=== PATIENT | male | born 1965 | race Caucasian/White ===

== ENCOUNTER 2018-09-04 13:20 | Inpatient (IN) | payer OTHER ==
[~2018-09-04] VITALS: Ht 172.7 cm; Wt 128.9 kg
[2018-09-04] MEDS ORDERED: LASIX20 MG PO (13:35)
[2018-09-04] MEDS ORDERED: TOPROL XL50 MG PO (13:36)
[2018-09-04] MEDS ORDERED: LISINOPRIL10 MG PO (13:37)
--- NOTE | 2018-09-04 17:38 | NUR ---
MED REC COMPLETE
--- NOTE | 2018-09-04 18:19 | NUR ---
PT ATE DINNER WELL, ANTHONY WELL. PT HAVING SOB AND IS STANDING AT THIS TIME. HAS PAIN IN LEGS BURING AND TIGHTNESS NOTED DURING ASSEMENT
--- NOTE | 2018-09-04 18:47 | NUR ---
PT HAVING INCREASED SOB, RT HERE TO PROVIDE NEB TX. PT PLACED ON O2 VIA NC AT 2L'S. PT ALSO GIVEN COUGH MEDICINE AT THIS TIME.
--- NOTE | 2018-09-04 19:20 | NUR ---
Patient asked for assistance with putting his nasal cannula in, he also wanted the RN Sania to look at his IV sight because he believed it to be leaking.
--- NOTE | 2018-09-04 19:30 | NUR ---
REPORT RC'D FROM DAY SHIFT NURSE CRIS. REPORTS INCREASED WOB, RR INTO 30'S, PRODUCTIVE COUGH, AND HYPERTENSION. PT UP AT EDGE OF BED WATCHING TV.
--- NOTE | 2018-09-04 20:30 | NUR ---
AAOX4 AND RESPONDING APPROPRIATELY. SINUS RHYTHM NOTED ON MONITOR, HEART SOUNDS DISTANT, PERIPHERAL PULSES PALPABLE. EDEMA TO BLE NONPITTING, TIGHT, AND SKIN PEELING. MODERATE GENERALIZED EDEMA TO ABD, DISTENDED AND TIGHT. GENERALIZED EDEMA TO BUE. INCREASED WOB, RR 25, PRODUCTIVE COUGH WITH THIN CLEAR SPUTUM, BUL CLEAR, BLL COARSE AND TIGHT, 2L NC. BOWEL TONES HYPERACTIVE X4, DENIEA NAUSEA, 1800 ML FLUID RESTRICTION. VOIDING QS. CMS INTACT. REDDENED AREAS TO BLE AND ABD, PT STATES NORMAL. CURRENT PAIN 7/10, HEADACHE, 650 MG TYLENOL GIVEN. IV SITES FLUSHED, PATENT, WNL. EDUCATION PROVIDED ON CURRENT ILLNESS, ACTIVITY, FLUID RESTRICTION, DIET, SAFETY, MEDICATION, AND FALL PREVENTION. ALL QUESTIONS ANSWERED, VERBALIZED UNDERSTANDING, AGREEABLE TO PLAN. DENIES OTHER NEEDS. CALL LIGHT WITHIN REACH.
--- NOTE | 2018-09-04 20:36 | NUR ---
ELYSIA Valenzuela asked me to get a blood sugar check on the patient and it was within normal range.
--- NOTE | 2018-09-04 23:22 | NUR ---
PT REQUESTING TO HAVE MCKEON CATH PLACED. PT STATES HE IS "GETTING REALLY TIRED AND FEELING WORN OUT HAVING TO CONSTANTLY GET UP."EDUCATED PT ON MCKEON CATH IMPLICATIONS AND POSSIBLE RISKS. PT STATES "I'VE HAD ONE WITH A PAST HOSPITAL VISIT AND UNDERSTAND." PT STATES HE DOES FEEL HE WILL GET ANY REST IF HE HAS TO GET UP FREQUENTLY. PHONE CALL TO DR. MARTINES REGARDING REQUEST. PER PROVIDER, MCKEON CATH MAY BE PLACED AT THIS TIME, ORDER VERIFIED.
--- NOTE | 2018-09-05 | NUR ---
NO ACUTE CHANGES TO ASSESSMENT. REMAINS ON 2L O2, RR 20'S, BUL CLEAR, BLL TIGHT AND COARSE. MCKEON CATH PLACED W/O DIFFICULTY, TOLERATED WELL. BIPAP FITTED AND PLACED BY R/T. DENIES OTHER NEEDS. CALL LIGHT WITHIN REACH.
--- NOTE | 2018-09-05 00:25 | NUR ---
PT REFUSING BIPAP AT THIS TIME. PT STATES INCREASED PAIN WITH HEADACHE AND PRESSURE, C/O PAIN AROUND MASK. R/T ADJUSTED MASK NUMEROUS TIMES. EDUCATION PROVIDED ON INDICATIONS AND BENEFITS. PT STATES HE WILL ATTEMP AT LATER TIME WHEN HEADACHE IMPROVES.
--- NOTE | 2018-09-05 02:30 | NUR ---
PRN YLENOL GIVEN FOR HEADACHE. BP MEDICATIONS GIVEN. LAST BP 178/115, MAP 129, HR 96. WILL CONTINUE TO MONTIOR. PRN TYLENOL GIVEN FOR CONTINUED HEADACHE. PT REQUESTING TO SIT UP IN CHAIR, 1PA, TOLERATED WELL W/O DIZZINESS.
--- NOTE | 2018-09-05 04:30 | NUR ---
PT ABLE TO REST AT THIS TIME. SPO2 97%, RR 19, HR 82, BP 173/113. NO ACUTE DISTRESS NOTED. WILL CONTINUE TO MONITOR.
--- NOTE | 2018-09-05 05:47 | NUR ---
AT START OF SHIFT URINE OUTPUT WAS AMPLE. PT WAS MADE NPO AT 0000. AFTER THAT HER URINE OUTPUT DROPPED TO 50ML/HR. I DID INCREASE HER IV FLUIDS TO 85ML/HR AND SO FAR PT HAS BEEN TOLERATING THAT WITH REGARDS TO SOB AND CRACKLES IN HER LUNGS. I WILL CONTINUE TO MONITOR HER RESPIRATORY STATUS. PT ALSO HAD A HEADACHE AT START OF SHIFT. PRN TYLENOL WAS ADEQUATE FOR PAIN RELIEF. V/S OVERALL HAVE BEEN WDL WITH HER RR IN THE 20'S FOR THE MOST PART. ABD SOUNDS ARE PRESENT AND PT DENIES ANY ABD PAIN. NO PERIPHERAL EDEMA NOTED.
--- NOTE | 2018-09-05 06:31 | NUR ---
NO ACUTE CHANGES OR IMPROVEMENT TO ASSESSMENT THROUGHOUT THE NIGHT. PT DID NOT REST MUCH AND REPORTS FATIGUE AND UNABLE TO REST DUE TO DISCOMFORT. MCKEON CATH PLACED AND WNL. LASIX GTT REMAINS AT 10 ML/HR. HEADACHE REMAINS WITH MINIMAL IMPROVEMENT WITH PRN TYLENOL.
--- NOTE | 2018-09-05 07:03 | EKG ---
[facility] [address] [facility] [place] [address] Signed Sinus tachycardia Possible Left atrial enlargement Right axis deviation Pulmonary disease pattern Incomplete right bundle branch block Abnormal ECG No previous ECGs available Confirmed by EVANGELISTA MARTINES MD ([id number]) on 09/05/2018 7:03:29 AM Electronically Signed By: EVANGELISTA MARTINES MD 09/05/18 0703 PATIENT NAME: SANDRASHERRIE Electrocardiogram DATE OF : 69 PHYSICIAN: EVANGELISTA MARTINES MD REPORT #: [id number] REPORT IS CONFIDENTIAL AND NOT TO BE RELEASED WITHOUT AUTHORIZATION
--- NOTE | 2018-09-05 08:00 | NUR ---
PT UP TO THE CHAIR AT THIS TIME, C/O HAVING LEG CRAMPS. HAVING GOOD URINE OUTPUT IN MCKEON CATHETER. ORDERED BKF FOR PT AND ASSESSMENT COMPLETE.
--- NOTE | 2018-09-05 10:20 | NUR ---
REPORT CALL TO M/S ALL QUESTIONS ANSWERED AT THIS TIME. PT PLACED ON TELE #2. ALL PERSONAL BELONGINGS AND MEDICATIONS SENT WITH PT AT THIS TIME.
--- NOTE | 2018-09-05 10:30 | NUR ---
PT ARRIVED TO FLOOR VIA CHAIR. PERSONAL BELONGINGS AT BEDSIDE. PT REPORTS SOME PAIN IN COCCYX AREA. REPOSITIONED. ORIENTED TO ROOM. VSS. CALL LIGHT IN REACH. ASSESSMENT COPLETED.
--- NOTE | 2018-09-05 10:35 | NUR ---
5MG IVP GIVE FOR BP. PT TRASNFERED VIA CHAIR TO ROOM 112. ALL PERSONAL BELONGS SENT WITH HIMMichelle
--- NOTE | 2018-09-05 12:06 | NUR ---
ASSISTED PT WITH SHOWER. TOLERATED WELL. TITRATED OXYGEN TO RA. SATURATIONS AT 93%. PULSE IN 90'S. GOWN CHANGED. MCKEON CARE COMPLETED. NYSTATIN POWDER APPLIED. PT UP IN CHAIR, CALL LIGHT IN REACH. DENEIS FURTHER NEEDS AT THIS TIME.
--- NOTE | 2018-09-05 12:15 | NUR ---
PT UP IN CHAIR FOR LUNCH AFTER SHOWER. REQUESTED NICOTINE LOZENGE PROVIDED. CALL LIGHT IN REACH. DENEIS FURTHER NEEDS AT THIS TIME.
--- NOTE | 2018-09-05 13:50 | NUR ---
PT REQUESTING NICOTINE LOZENGE AND COUGH MEDICATION. UP IN CHAIR WATCHING TV. CALL LIGHT IN REACH.
--- NOTE | 2018-09-05 17:23 | EKG ---
[facility] [address] [facility] [place] [address] Signed Normal sinus rhythm Possible Left atrial enlargement Right axis deviation Incomplete right bundle branch block Prolonged QT Abnormal ECG When compared with ECG of 04-SEP-2018 13:27, No significant change was found Confirmed by EVANGELISTA MARTINES MD ([id number]) on 09/05/2018 5:23:23 PM Electronically Signed By: EVANGELISTA MARTINES MD 09/05/18 1723 PATIENT NAME: SANDRASHERRIE Electrocardiogram DATE OF : 69 PHYSICIAN: EVANGELISTA MARTINES MD REPORT #: [id number] REPORT IS CONFIDENTIAL AND NOT TO BE RELEASED WITHOUT AUTHORIZATION
--- NOTE | 2018-09-05 18:00 | NUR ---
PT UP IN CHAIR FOR DINNER. CALL LIGHT IN REACH. LOZENGE PROVIDED. DENIES FURTHER NEEDS.
--- NOTE | 2018-09-05 19:59 | NUR ---
PATIENT GIVEN A NICOTINE LOZANGE AT HIS REQUEST AND IS SITTING UP IN HI RECLINER WATCHING TV. NO C/O PAIN.
--- NOTE | 2018-09-05 22:12 | NUR ---
PATIENT SITTING UP IN RECLINER WATCHING TV.
--- NOTE | 2018-09-06 00:05 | NUR ---
PATIENT RESTING IN HIS ARMCHAIR RECLINER. RESPIRATIONS REGULAR AND EVEN. EYES CLOSED. CALL LIGHT IN REACH.
--- NOTE | 2018-09-06 02:00 | NUR ---
PATIENT RESTING QUIETLY IN HIS ARM CHARM. RESPIRATIONS REGULAR AND EVEN AT 16. EYES CLOSED. CALL LIGHT IN REACH.
--- NOTE | 2018-09-06 04:10 | NUR ---
PATIENT SITTING UP IN HIS ARM CHAIR RECLINER STILL. NOW HE IS WATCHING TV. SBP LOW ENOUGH NO MEDS GIVEN AT THIS TIME.
--- NOTE | 2018-09-06 04:55 | NUR ---
PATIENT BACK IN BED AFTER GETTING UP TO USE THE RESTROOM WITH 1PSBA, PATIENT GOING TO TRY AND GET SOME SLEEP UNTIL BREAKFAST.
--- NOTE | 2018-09-06 06:09 | NUR ---
PATIENT HAS RESTED IN HIS RECLINING ARMCHAIR ALL NIGHT, MOST OF THE TIME EYES CLOSED RESPIRATIONS REGULAR AND EVEN. MCKEON IS DRAINING WELL. PATIENT IS STICKING TO [id number] FLUID RESTRICTION, STARTING OVER AT 6AM. PATIENT DID DESAT TO 88% ABOUT 4:30 THIS AM AND WAS PUT BACK ON 1L/NC RETURNING HIM TO 92-95%.
--- NOTE | 2018-09-06 07:22 | NUR ---
RECIEVED BEDSIDE REPORT FROM ELYSIA PARSON. PT SLEEPING IN CHAIR DURING MOST OF REPORT, BUT DID WAKE INDEPENDENTLY TOWARD THE END OF REPORT. PT WOKE REPORTING GENERALIZED PAIN. MCKEON DRAINING CLEAR YELLOW URINE. 1800ML FLUID RESTRICTION RESTARTED.
--- NOTE | 2018-09-06 08:25 | NUR ---
ASSISTED PT TO BATHROOM TO CLEAN UP AFTER BM. PT UNABLE TO CLEAN HIMSELF. OPEN AREA ON COCCYX IS VERY SORE. CHANGED CHUX ON CHAIR.
--- NOTE | 2018-09-06 09:33 | NUR ---
MD AWARE OF BP OUT OF PARAMETERS. NO NEW ORDERS, WAITING FOR LABS TO COME BACK.
[2018-09-06] MEDS ORDERED: ADVAIR 250-501 EACH INH (10:44)
[2018-09-06] MEDS ORDERED: NORVASC5 MG PO (10:45)
[2018-09-06] MEDS ORDERED: TOPROL XL50 MG PO (10:45)
[2018-09-06] MEDS ORDERED: NICORETTE4 M2 BUCCAL (10:45)
[2018-09-06] MEDS ORDERED: NYSTATIN15 GM TOP (10:46)
[2018-09-06] MEDS ORDERED: FUROSEMIDE40 MG PO (10:46)
[2018-09-06] MEDS ORDERED: POTASSIUM CHLO10 ME1 PO (10:46)
--- NOTE | 2018-09-06 11:15 | NUR ---
LINDA DAVENPORT AND TOMÁS DAVENPORT. PT WANTS TO WAIT UNTIL AFTER LUNCH TO LEAVE, HE WILL CALL HIS WHEN HE IS READY.
--- NOTE | 2018-09-06 14:09 | NUR ---
PT GIVEN DISCHARGE INSTRUCTIONS. DISCUSSED IMPORTANCE OF FOLLOW UP IN 7-10 DAYS WITH PCP, PT WILL CALL FOR AN APPT AND KEEP HIS APPT TO ESTABLISH CARE IN OCTOBER. DISCUSED DIET AND FLUID RESTRICTION, PT VERBALIZED UNDERSTANDING. DISCUSSED WHEN TO CALL THE DR/COME TO THE ER. PT VERVALIZED UNDERSTANDING. IV REMOVED, PT DRESSED AND TAKEN TO VEHICLE IN WC. SPOUSE WAS WAITING.
== END 2018-09-06 14:00 | disposition home or self-care (01) | DRG 304 ==
LOC: ED 13:20 → CCU 16:03 → MS 09-05 10:42
PROVIDERS: ADMIT Internal Medicine
DX: I16.9 Hypertensive crisis, unspecified (principal); I50.23 Acute on chronic systolic (congestive) heart failure; Z68.41 Body mass index [BMI] 40.0-44.9, adult; I11.0 Hypertensive heart disease with heart failure; F17.210 Nicotine dependence, cigarettes, uncomplicated; J44.9 Chronic obstructive pulmonary disease, unspecified; G47.33 Obstructive sleep apnea (adult) (pediatric); E66.9 Obesity, unspecified; I25.10 Atherosclerotic heart disease of native coronary artery without angina pectoris; I25.2 Old myocardial infarction
CPT/HCPCS: 36415; 51702; 71046; 80048; 80053; 80061; 83735; 83880; 84484; 85025; 93005; 93010; 94640; 94660; 96374; 96375; 96376; 99285-25; 99406; J1650; J3480; J7060

== ENCOUNTER 2021-08-29 06:50 | Day surgery (SDC) | payer MEDICARE, OTHER ==
[~2021-08-29] VITALS: Ht 172.7 cm; Wt 125.9 kg
[~2021-08-29 06:50] MED LIST: ADVAIR 250-501 EACH INH; ALBUTEROL2.5 MG/0.5 INH; ALDACTONE50 MG PO; ALLOPURINOL300 MG PO; AMIODARONE HCL200 MG PO; ELIQUIS5 MG PO; FUROSEMIDE40 MG PO; GLUCOPHAGE500 MG PO; LASIX20 MG PO; LASIX40 MG PO; LIPITOR10 MG PO; LISINOPRIL10 MG PO; METOPROLOL SUCC50 MG PO; NICORETTE4 M2 BUCCAL; NORVASC5 MG PO; NYSTATIN15 GM TOP; POTASSIUM CHLO10 ME1 PO; PROAIR DIGIHAL90 MCG; TOPROL XL50 MG PO; TRULICITY0.75 MG/0.; TRULICITY0.75 MG/0. SUB-Q; VITAMIN C500 M5 PO; ZESTRIL40 MG PO
--- NOTE | 2021-08-29 09:23 | NUR ---
08/29/21 0923 Nataly Prieto 0915 PATIENT ARRIVES TO PACU RESTING WITH EYES CLOSED. AWAKE OFF/ON, BUT DROWSY. RESP EVEN AND UNLABORED, MASK AT 6 LITERS, SATS >98%. PATIENT DENIES PAIN OR NAUSEA. 0920 PATIENT REPOSITIONS SELF TO LEFT SIDE. RESP EVEN AND UNLABORED, ROOM AIR SATS >90%. CONTINUES TO DENY PAIN OR NAUSEA.
--- NOTE | 2021-08-29 10:50 | OR ---
[facility] [address] [place], [place] [address] Signed DATE OF OPERATION: 08/29/2021 SURGEON: Nathaniel Michelle MD PREOPERATIVE DIAGNOSIS: Recurring pilonidal cyst. POSTOPERATIVE DIAGNOSIS: Recurring pilonidal cyst. PROCEDURE: Pilonidal cystectomy. ESTIMATED BLOOD LOSS: None. INDICATIONS: Sherrie is an obese, diabetic gentleman with a body mass index of 42. He has significant cardiac and pulmonary disease. He went through cardiac ablation for his atrial fibrillation and now remains in sinus rhythm. He has been on Eliquis in that regard. He thinks at his next cardiac visit, they may discontinue the Eliquis. His left ventricular ejection fraction is up around 50%. He went to his physical therapy supervisor last year. When he walked up and down the hallway, his O2 sats never fell below 90%. We can see from his blood work that his BNP is up a little at 513 with a BUN and creatinine elevated at 36 and 1.9. His albumin is good at 3.8. His hemoglobin also is good at 13.7. Blood sugar a little up at 114. His preop EKG did show the normal sinus rhythm. He has been having trouble with a persistent recurring pilonidal cyst for many years. He said every couple of months it gets infected, drains to the surface and is quite painful and malodorous. He had been to his primary care provider. He was asked to see me with respect to the above. In the office, I met with Sherrie and explained to him the nature of a pilonidal cyst. He understands this has to be excised completely and left open to heal in secondarily. He told me his can help him with the gauze packing twice a day. His is with him today in our preop area and she agrees in that regard. We did review the expected intraop and postop course. This can take a couple of months or more to heal depending on the size. He understands there is risk to the surgery including, but not limited to bleeding, infection, scarring, change in contour of the skin as well as recurrent pilonidal cyst requiring additional interventions. He had expressed understanding and wished to proceed. DESCRIPTION OF PROCEDURE: Electronically Signed By: NATHANIEL MICHELLE MD 08/29/21 1050 PATIENT NAME: SHERRIE FLORES OPERATIVE REPORT DATE OF : 69 REPORT #: [id number] PHYSICIAN: NATHANIEL MICHELLE MD PCP: EMILY LIEBERMAN MD REPORT IS CONFIDENTIAL AND NOT TO BE RELEASED WITHOUT AUTHORIZATION [facility] [address] [place] [id number] Signed I met with Sherrie and his in our preop area and we reviewed the above findings. He was given a saddle block by our nurse cyanide furnace operator. After this, he was taken in the operating room and placed in the left lateral decubitus position with appropriate padding and monitoring. He was given monitored anesthesia care in addition to the saddle block by our nurse cyanide furnace operator. SCDs were in place. He was given preoperative antibiotic. He was then prepped and draped in the usual sterile fashion. One could easily see his pilonidal cyst. Unfortunately, it is not particularly large. Standard elliptical incision was made following the long axis of the gluteal crease so that all the pilonidal cyst tissue was removed all the way down right next to his sacrum. All the surrounding adipose tissue was quite healthy. We undermined a little bit of the adipose tissue near the sacrum inferiorly to allow the gluteal crease to come up a bit and release some of that tension on his skin. We injected additional local anesthetic into the tissue and around the wound. The wound was irrigated and suctioned out until clear. The wound was packed with saline soaked gauze and covered with a dry ABD and underwear. Sherrie was then rotated into the supine position, transferred to his hospital bed and taken into recovery room in stable condition. Sherrie tolerated the procedure quite well. Nathaniel Michelle MD ALB/MODL /[id number] cc: MD Nathaniel Rinaldi MD Mary Carnaghan, FNP Copies: NATHANIEL MICHELLE MD, MARY FNP ~ Electronically Signed By: NATHANIEL MICHELLE MD 08/29/21 1050 PATIENT NAME: SHERRIE FLORES OPERATIVE REPORT DATE OF : 69 REPORT #: [id number] PHYSICIAN: NATHANIEL MICHELLE MD PCP: EMILY LIEBERMAN MD REPORT IS CONFIDENTIAL AND NOT TO BE RELEASED WITHOUT AUTHORIZATION
== END 2021-08-29 10:00 | disposition home or self-care (01) ==
LOC: DS 06:50
PROVIDERS: ATTEND Colon & Rectal Surgery
PROC: 0HB8XZZ Excision of Buttock Skin, External Approach (ICD-10-PCS; principal; 2021-08-29 08:15)
DX: L05.91 Pilonidal cyst without abscess (principal); E11.9 Type 2 diabetes mellitus without complications; E66.9 Obesity, unspecified; I48.91 Unspecified atrial fibrillation; I11.0 Hypertensive heart disease with heart failure; I50.22 Chronic systolic (congestive) heart failure; J44.9 Chronic obstructive pulmonary disease, unspecified; Z68.41 Body mass index [BMI] 40.0-44.9, adult; F17.200 Nicotine dependence, unspecified, uncomplicated; Z79.01 Long term (current) use of anticoagulants; Z79.84 Long term (current) use of oral hypoglycemic drugs
CPT/HCPCS: J0690; J1644; J2001; J2250; J2704; J7121

== ENCOUNTER 2024-03-10 07:02 | Day surgery (SDC) | payer MEDICARE, OTHER ==
[2024-03-02 13:31] VITALS: BP 135/89
[~2024-03-10] VITALS: Ht 172.7 cm; Wt 101.4 kg
[~2024-03-10 07:02] MED LIST changes: +CEFAZOLIN SODIUM 2 GM/20 ML SYR IV SCH; +DEXAMETHASONE SOD PHOS 4 MG/ML VIAL ONE; +ENOXAPARIN SODIUM 40 MG/0.4 ML SYR SUB-Q SCH; +FAMOTIDINE 20 MG/ 2 ML VIAL ONE; +IBLOOD GLUCOSE TEST STRIP 1 EA TEST VI PRN; +KETOROLAC TROMETHAMINE 30 MG/ML VIAL ONE; +LACTATED RINGER'S 1,000 ML IV ONE; +LACTATED RINGER'S 1,000 ML IV SCH; +LIDOCAINE HCL 1% 5 ML SDV INJ ONE; +LIDOCAINE HCL 4% 5 ML AMP ONE; +METOCLOPRAMIDE HCL 10 MG/2 ML SDV ONE; +MIDAZOLAM HCL 2 MG/2 ML VIAL ONE; +ROCURONIUM BROMIDE 50 MG/5 ML SYR ONE; +SUCCINYLCHOLINE IN 0.9% NACL 200 MG/10 ML SYRINGE ONE; +SUGAMMADEX SODIUM 200 MG/2 ML ML ONE; +fentaNYL citrate 100 MCG/2 ML VIAL ONE; +ondansetron HCL 4 MG/2 ML VIAL ONE; +propofoL 200 MG/20 ML VIAL ONE
--- NOTE | 2024-03-10 07:16 | NUR ---
PT NOT AVAILABLE FOR VISIT. PROVIDED PRAYER.
[2024-03-10 07:27] VITALS: BP 126/83
[2024-03-10] MEDS ORDERED: POTASSIUM CHLO10 MEQ PO (07:33)
[2024-03-10] MEDS ORDERED: FARXIGA10 MG PO (07:33)
--- NOTE | 2024-03-10 09:40 | NUR ---
03/10/24 0940 CAS REYES 0972 PT ARRIVED TO PACU VIA STRECHER. REPORT TAKEN FROM COURTNEY WEBB CRNA. PT SITTING UPRIGHT WITH NATURAL AIRWAY, PT HAS 8L OF O2 VIA FACE MASK. ALL MONITORS ATTACHED. PT REPORTING NO PAIN OR NAUSEA AT THIS TIME. 0928 OXYGEN MASK REMOVED. PT STAYING ABOVE 90% O2 SAT ON RA. 0935 PT RESTING ON AND OFF. PT AWAKES TO VERBAL STIMULI. PT OXYGEN
[2024-03-10] MEDS ORDERED: METOCLOPRAMIDE HCL 10 MG/2 ML SDV IV PRN (10:00)
[2024-03-10] MEDS ORDERED: NALOXONE HCL 0.4 MG SYR IV PRN ×2 (10:00)
[2024-03-10] MEDS ORDERED: IBLOOD GLUCOSE TEST STRIP 1 EA TEST VI PRN (10:00)
[2024-03-10] MEDS ORDERED: MORPHINE SULFATE 10 MG/ML VIAL IV PRN (10:00)
[2024-03-10] MEDS ORDERED: droPERidol 5 MG/2 ML VIAL IV PRN (10:00)
[2024-03-10] MEDS ORDERED: ondansetron HCL 4 MG/2 ML VIAL IV PRN ×2 (10:00)
[2024-03-10] MEDS ORDERED: fentaNYL citrate 50 MCG/ML SDV IV PRN (10:00)
[2024-03-10] MEDS ORDERED: PROCHLORPERAZINE EDISYLATE 10 MG/2 ML VIAL IV PRN ×2 (10:00)
[2024-03-10] MEDS ORDERED: HYDROmorphone HCL 1 MG/ML SYR IV PRN (10:00)
[2024-03-10] MEDS ORDERED: HYDROCODONE/ACETA 5/325 TAB PO PRN (10:00)
--- NOTE | 2024-03-10 10:00 | NUR ---
PT ARRIVES TO DS DEPT FROM PACU VIA STRETCHER. PT REPORTS PAIN IS 8/10 AT THIS TIME IN ABDOMEN. DRESSING VISUALIZED W/CAS NAIDU, C/D/I. ICE PACK IN PLACE AND PILLOW IN PLACE FOR SUPPORT. REPORT RECEIVED FROM CAS NAIDU W/ AT BEDSIDE. PT TOLERATING COFFEE AND CRACKERS WITHOUT DIFFICULTY OR ONSET OF NAUSEA. PRN PAIN PILL GIVEN (SEE EMAR). CALL LIGHT WITHIN REACH, PT REPORTS NO FURTHER NEEDS OR QUESTIONS AT THIS TIME. PT ON RA, W/O2 >90%, RESPIRATIONS EVEN AND UNLABORED.
[2024-03-10 10:14] VITALS: BP 145/79
[2024-03-10] MEDS ORDERED: ACETAMINOPHEN 1,000 MG/100 ML VIAL IV ONE (10:30)
--- NOTE | 2024-03-10 10:35 | NUR ---
PT STATES NEED TO USE RESTROOM. PT SITS AT BEDSIDE AND REPORTS NO ONSET OF DIZZINESS/NAUSEA. PT UP TO RESTROOM W/THIS RN AND PT STANDBY ASSIST. PT URINE VOID 250 ML OF CLEAR/YELLOW URINE. PT BACK TO ROOM AND ASSISTED W/GETTING UNDERWEAR ON AT PT REQUEST. PT NOW SITTING IN BED EATING APPLESAUCE AND CRACKERS. DRESSING VISUALIZED POST AMBULATION, NO NEW BLEEDING SIGNS AT THIS TIME. CALL LIGHT WITHIN REACH, PT REPORTS NO FURTHER QUESTIONS OR NEEDS AT THIS TIME. AT BEDSIDE.
--- NOTE | 2024-03-10 11:00 | NUR ---
IN PT ROOM FOR PAIN ASSESSMENT. PT REPORTS PAIN HAS DECREASED TO 7/10 AND STATES PAIN IS TOLERABLE AT THIS TIME AND WOULD LIKE TO GO HOME. PT GETTING DRESSED AT THIS TIME W/ ASSISTANCE. CALL LIGHT WITHIN REACH. PT REPORTS NO FURTHER NEEDS AT THIS TIME.
--- NOTE | 2024-03-10 11:15 | NUR ---
IN PT ROOM FOR DC EDUCATION, PT STATES VERBAL UNDERSTANDING AND NO FURTHER QUESTIONS AT THIS TIME BY PT OR PT . VS TAKEN. PT OFF OF UNIT VIA WC TO PASSENGER SIDE OF 'S VEHICLE. ALL BELONGINGS IN PT POSSESSION AT THIS TIME. PT REPORTS NO FURTHER QUESTIONS OR NEEDS. FRESH ICE PACK PROVIDED.
--- NOTE | 2024-03-10 11:18 | OR ---
[facility] [address] [place], [place] [address] Signed DATE OF OPERATION: 03/10/2024 SURGEON: Nathaniel Michelle MD PREOPERATIVE DIAGNOSIS: Incarcerated epigastric hernia (16 mm). POSTOPERATIVE DIAGNOSIS: Incarcerated epigastric hernia (16 mm). PROCEDURES: Epigastric herniorrhaphy with intra-abdominal 4.3 cm round Ventralex mesh. ESTIMATED BLOOD LOSS: None. INDICATIONS: Sherrie is a 58-year-old obese gentleman, asked to see me for his incarcerated epigastric hernia. It was slightly below the area of the xiphoid process at the edge of his hairline. He has a curvilinear incision underneath the umbilicus. He told me a few weeks after he was came out and he had to have emergent surgery. 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 However, this incarcerated epigastric hernia has been bothering him quite a bit. The whole incarcerated tissue is 3 or 4 cm at least in diameter. The ultrasound showed the 16 cm fascial defect. Previously, he was in atrial fibrillation, but went through an ablation back in 2019. Now, he is in sinus rhythm. Although, he stays on Eliquis twice a day in that regard. He also has significant COPD. In the office, I gave him our brochure on hernias. We looked at it together in detail. He understands the nature of his epigastric hernia. We reviewed the difference between the primary suture repair and mesh repair. He understands the expected intraop and postop course. There is risk to the surgery including, but not limited to bleeding, infection, scarring, change in contour of the skin, damage to bowel or the liver as well as infection of mesh requiring removal, recurrent hernias and chronic pain. He had expressed understanding and wished to proceed. PROCEDURE IN DETAIL: I met with Sherrie and his along with our nurse in the preop area. We could all easily see and agreed on the epigastric hernia and I circled that lesion. After this, we took Sherrie into the operating room and placed him in the supine position under Electronically Signed By: NATHANIEL MICHELLE MD 03/10/24 1118 PATIENT NAME: SHERRIE FLORES OPERATIVE REPORT DATE OF : 69 REPORT #: [id number] PHYSICIAN: NATHANIEL MICHELLE MD PCP: JENELLE LIEBERMAN MD REPORT IS CONFIDENTIAL AND NOT TO BE RELEASED WITHOUT AUTHORIZATION [facility] [address] [place], [place] [address] Signed general endotracheal tube anesthesia. He was given preoperative antibiotics along with subcutaneous Lovenox. SCDs were utilized. He was then prepped and draped in the usual sterile fashion. We made a standard vertical midline incision and we carried down around the herniated fat bluntly and with the cautery. As we inspected it further, we realized this was falciform ligament along with the surrounding fat. We used Peon clamps x3 with 0 Vicryl ties to completely tie off the proximal distal portion of the falciform ligament along with the surrounding fat. The falciform ligament was then returned to the abdomen. We could easily see the edge of his liver and underlying intestine. The fascial defect was indeed about 16 mm. We therefore chose our 4.3 cm round Ventralex mesh. We placed it in the abdomen, brought up flushed against the posterior abdominal wall. We closed the fascial defect transversely with two interrupted #1 [id number] Prolene sutures. We used one additional simple stitch on the right side as well. After this, local anesthetic was injected in the abdominal wall along the subcutaneous tissues. The wound was irrigated and suctioned out until clear. We closed the skin and dermis with interrupted 3-0 subcuticular Monocryl sutures. The skin edges were reapproximated with running 5-0 fast absorbing plain gut suture. Dry gauze and tape was then applied. Sherrie was awakened from his anesthesia, extubated in the OR, and taken to recovery room in stable condition. Nathaniel Michelle MD ALB/MODL /[id number] cc: MD Jenelle Trejo MD Copies: NATHANIEL MICHELLE MD ~ Electronically Signed By: NATHANIEL MICHELLE MD 03/10/24 1118 PATIENT NAME: SHERRIE FLORES OPERATIVE REPORT DATE OF : 69 REPORT #: [id number] PHYSICIAN: NATHANIEL MICHELLE MD PCP: JENELLE LIEBERMAN MD REPORT IS CONFIDENTIAL AND NOT TO BE RELEASED WITHOUT AUTHORIZATION
[2024-03-10 11:20] VITALS: BP 148/85
== END 2024-03-10 11:25 | disposition home or self-care (01) ==
LOC: DS 07:02
PROVIDERS: ATTEND Colon & Rectal Surgery
PROC: 0WUF0JZ Supplement Abdominal Wall with Synthetic Substitute, Open Approach (ICD-10-PCS; principal; 2024-03-10 08:15)
DX: K43.6 Other and unspecified ventral hernia with obstruction, without gangrene (principal); J44.9 Chronic obstructive pulmonary disease, unspecified; I11.0 Hypertensive heart disease with heart failure; I50.22 Chronic systolic (congestive) heart failure; E11.9 Type 2 diabetes mellitus without complications; I48.0 Paroxysmal atrial fibrillation; F17.210 Nicotine dependence, cigarettes, uncomplicated; Z79.01 Long term (current) use of anticoagulants; Z79.82 Long term (current) use of aspirin; Z79.84 Long term (current) use of oral hypoglycemic drugs; Z79.899 Other long term (current) drug therapy
CPT/HCPCS: 00830; C1781; J0131; J0330; J0690; J1100; J1650; J1885; J2250; J2405; J2704; J2765; J3010; J3490; J7121